=== PATIENT | male | born 1970 | race Caucasian/White ===

== ENCOUNTER → 2017-10-28 | Outpatient (REF) | payer OTHER ==
[~2017-10-28] MED LIST: HYDR12.561 PO; PAN40 PO
== END ==
LOC: ZZSENDIN 12:00
PROVIDERS: ATTEND Surgery
DX: L82.1 Other seborrheic keratosis (principal)
CPT/HCPCS: 88305

== ENCOUNTER → 2019-02-08 | Outpatient (CLI) | payer OTHER ==
--- NOTE | 2019-02-08 16:44 | RADIOLOGY IMAGING REPORT ---
FACILITY: [facility] [place] PATIENT NAME: Camacho Aburto : 1970 MR: [id number] V: [id number] EXAM DATE: ORDERING PHYSICIAN: MARCEL RUIZ TECHNOLOGIST: Location: [facility] [place] Patient: Camacho Aburto : 1970 Visit/Account:[id number] Date of Sevice: 02/08/2019 2 VIEWS CHEST INDICATION: Chronic cough COMPARISON: None available FINDINGS: Cardiomediastinal silhouette: Heart size within normal limits. Lungs: There is no focal infiltrate or lobar consolidation. There is no pneumothorax or pleural effusion. Bones and soft tissues: Unremarkable IMPRESSION: 1. No consolidation Report Dictated By: Jt Javed MD at 02/08/2019 4:40 PM Report E-Signed By: Jt Javed MD at 02/08/2019 4:41 PM WSN:[id number]
== END ==
LOC: RAD 16:00
PROVIDERS: ATTEND Family Medicine
DX: R05 Cough (principal)
CPT/HCPCS: 71046

== ENCOUNTER 2019-04-28 00:15 | Day surgery (SDC) | payer OTHER ==
[~2019-04-28] VITALS: Ht 185.4 cm; Wt 99.3 kg
[~2019-04-28 00:15] MED LIST changes: +ASCO-182 PO; +OMEP-126 PO; +PANT40TA65 PO
[2019-04-28 08:06] VITALS: BP 125/79
[2019-04-28] MEDS ORDERED: LIDOCAINE/SOD BICARB 8.4% SYR ID ONE (08:30)
[2019-04-28] MEDS ORDERED: NORMOSOL R SOLN(*) 1000 ML BAG 1,000 ML IV PRN (08:30)
[2019-04-28 10:16] VITALS: BP 109/81
[2019-04-28 10:38] VITALS: BP 105/77
[2019-04-28 11:03] VITALS: BP_SYST 108; BP_SYST 110; BP_DIAS 76; BP_DIAS 84
== END 2019-04-28 11:10 | disposition home or self-care (01) ==
LOC: OR 00:15
PROVIDERS: ATTEND Family Medicine
DX: Z12.11 Encounter for screening for malignant neoplasm of colon (principal)